=== PATIENT | male | born 2000 | race Caucasian/White ===

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

== ENCOUNTER 2021-03-20 19:59 | Emergency (ER) | payer OTHER ==
[2021-03-20 20:16] VITALS: BMI 21.9
[2021-03-20] MEDS ORDERED: SODIUM CHLORIDE 1,000 ML IV STA (21:32)
[2021-03-20 22:11] LABS: BASO % 0.4 % (0-2.0); EOS % 0.2 % (0-4.5); HEMATOCRIT 44.1 % (35.4-49); LYMPH % 13.1 % (8-40); MCH 29.6 pg (25.7-33.7); MEAN CELL VOLUME 86.9 fl (80-96); MONO % 2.8 % (3.8-10.2); NEUT % 83.5 % (42.8-82.8); PLATELET COUNT 269 K/MM3 (134-434); RBC 5.08 M/mm3 (4.00-5.60); RDW 12.5 % (11.9-15.9); WHITE BLOOD COUNT 9.5 K/mm3 (4.0-10.0)
[2021-03-20 22:31] LABS: CHLORIDE 104 mmol/L (98-107); SODIUM 140 mmol/L (136-145)
[2021-03-20 22:33] LABS: CALCIUM 9.7 mg/dL (8.5-10.1)
[2021-03-20 22:34] LABS: ALBUMIN 4.5 g/dl (3.4-5.0); ANION GAP 7 MMOL/L (8-16); BLOOD UREA NITROGEN 9.2 mg/dL (7-18); CO2 29 mmol/L (21-32); GLUCOSE,RANDOM 103 mg/dL (74-106)
[2021-03-20 22:37] LABS: SGOT/AST 16 U/L (15-37); SGPT/ALT 18 U/L (13-61)
[2021-03-20 22:38] LABS: BILIRUBIN,TOTAL 1.1 mg/dL (0.2-1)
[2021-03-20 22:39] LABS: TOT PROT 7.7 g/dl (6.4-8.2)
[2021-03-20 22:40] LABS: ALK PHOS 71 U/L (45-117)
[2021-03-20 23:10] VITALS: PULSE 86
[2021-03-20 23:11] VITALS: BP 110/68; TEMP 98.6
== END 2021-03-20 23:22 | disposition home or self-care (01) ==
LOC: JER 19:59 → JERFT 19:59
PROC: 3E0337Z Introduction of Electrolytic and Water Balance Substance into Peripheral Vein, Percutaneous Approach (ICD-10-PCS; principal; 2021-03-20)
DX: R00.0 Tachycardia, unspecified (principal)
CPT/HCPCS: 36415; 71046-TC-FY; 80053; 82550; 84443; 84484; 85025; 93005; 93010; 99284-25